=== PATIENT | female | born 1960 ===

== ENCOUNTER 2017-09-19 10:04 | Emergency (ER) | payer BC ==
[2017-09-19 10:22] VITALS: TEMP 98.4
--- NOTE | 2017-09-19 12:19 | C.PDOC ---
History Of Present Illness Pt injured her right ring finger, by stubbing it? Time Seen by Provider: 09/19/17 10:48 Chief Complaint (Nursing): Finger,Hand,&Wrist History Per: Patient Onset/Duration Of Symptoms: Days (5) Current Symptoms Are (Timing): Still Present Severity: Mild Hands/Wrist (Pic): 1 - pain Additional History Per: Prior Records Past Medical History Reviewed: Historical Data, Nursing Documentation, Vital Signs Vital Signs: Last Vital Signs Temp 98.4 F 09/19/17 10:17 Pulse 67 09/19/17 10:17 Resp 18 09/19/17 10:17 BP 153/95 H 09/19/17 10:17 Pulse Ox 99 09/19/17 10:17 - Medical History PMH: HTN Family History: States: Unknown Family Hx - Social History Hx Alcohol Use: No Hx Substance Use: No - Immunization History Hx Tetanus Toxoid Vaccination: Yes Hx Influenza Vaccination: No Hx Pneumococcal Vaccination: No Review Of Systems Except As Marked, All Systems Reviewed And Found Negative. Constitutional: Negative for: Fever Musculoskeletal: Positive for: Hand Pain (right ring finger). Negative for: Arm Pain Skin: Negative for: Rash Neurological: Negative for: Weakness, Numbness Physical Exam - Physical Exam Appears: Non-toxic, No Acute Distress Skin: Normal Color, Warm, Dry, No Rash Head: Atraumatic, Normacephalic Eye(s): bilateral: PERRL, EOMI Neck: Normal ROM, Supple Extremity: Tenderness (mild, proximal right ring finger), Capillary Refill (wnl) , No Deformity Extremity: Right: Limited ROM To Joint (ring finger, due to pain.), Bilateral: Normal Color And Temperature Pulses: Right Radial: Normal Neurological/Psych: Oriented x3, Normal Motor, Normal Sensation ED Course And Treatment O2 Sat by Pulse Oximetry: 99 Pulse Ox Interpretation: Normal - Other Rad Right ring finger x-rays X-Ray: Interpreted by Me, Viewed By Me Interpretation: No acute fx or dislocation. Progress Note: Injured finger was placed in Finger splint. Reassessment Condition: Improved Disposition Counseled Patient/Family Regarding: Studies Performed, Diagnosis, Need For Followup - Disposition Referrals: Kimani Gandhi MD [Staff Provider] - Disposition: HOME/ ROUTINE Disposition Time: 12:20 Condition: IMPROVED Additional Instructions: Keep your finger in the splint provided. Follow up with a Hand specialist within 1-2 weeks. Return to the ER if you develop worsening of symptoms or if you have any other concerns. Instructions: Finger Sprain (ED) Forms: [employer] (Ind[place]ian) Print Language: BRITISH - Clinical Impression Clinical Impression: Injury of right ring finger
[2017-09-19 12:26] VITALS: BP 159/85; PULSE 66; RESP 16; O2SAT 100
--- NOTE | 2017-09-19 14:36 | RAD ---
Right hand 4th digit three views History: Injury. Comparison: None available. Findings: No evidence for acute displaced fracture or dislocation. Mild narrowing of the 2nd through 5th PIP joint spaces. Impression: Mild degenerative changes. If pain persists, consider MRI.
== END 2017-09-19 12:27 | disposition home or self-care (01) ==
LOC: C.ER 10:04
DX: S69.91XA Unspecified injury of right wrist, hand and finger(s), initial encounter (principal); X58.XXXA Exposure to other specified factors, initial encounter; I10 Essential (primary) hypertension